=== PATIENT | female | born 1950 | race African-American/Black ===

== ENCOUNTER 2020-02-15 09:13 | Day surgery (SDC) | payer MEDICARE, OTHER ==
[2020-02-15] VITALS (9 sets, daily range): BP systolic 134–150; BP diastolic 60–90
[~2020-02-15] VITALS: Ht 152.4 cm; Wt 77.6 kg
[2020-02-15] MEDS ORDERED: PANTOPRAZOLE SO40 MG ORAL (10:23)
[2020-02-15] MEDS ORDERED: LINZESS290 MCG PO (10:23)
[2020-02-15] MEDS ORDERED: AMLODIPINE BESY10 MG ORAL (10:23)
[2020-02-15] MEDS ORDERED: ATORVASTATIN CA40 MG ORAL (10:23)
[2020-02-15] MEDS ORDERED: HYDROCHLOROTHIA25 MG ORAL (10:23)
[2020-02-15] MEDS ORDERED: GABAPENTIN100 MG ORAL (10:23)
[2020-02-15] MEDS ORDERED: LISINOPRIL2.5 MG ORAL (10:23)
--- NOTE | 2020-02-15 10:59 | Pre-Procedure Note/Attestation ---
Pre-Procedure Note/Attestation Complete Prior to Procedure Planned Procedure: not applicable Procedure Narrative: colonoscopy Indications for Procedure Pre-Operative Diagnosis: screening Attestation I attest that I discussed the nature of the procedure; its benefits; risks and complications; and alternatives (and the risks and benefits of such alternatives ), prior to the procedure, with the patient (or the patient's legal business office representative). I attest that, if there was a reasonable possibility of needing a blood transfusion, the patient (or the patient's legal business office representative) was given the [facility] standardized written summary, pursuant to the [place] Blood Safety Act ([place] Health and Safety Code # 1645, as amended). I attest that I re-evaluated the patient just prior to the surgery and that there has been no change in the patient's H&P, except as documented below: Ronna Castaneda MD Feb 15, 2020 10:59
--- NOTE | 2020-02-15 10:59 | Short Stay Surgery H&P ---
History of Present Illness History of Present Illness Chief Complaint see attached H&P HPI aGby Robles is a 69 year old female who was admitted on for Colon Screening Medication History Scheduled Amlodipine Besylate* (Amlodipine Besylate*), 10 MG ORAL DAILY, (Reported) Atorvastatin Calcium* (Atorvastatin Calcium*), 40 MG ORAL BEDTIME, (Reported) Gabapentin* (Gabapentin*), 300 MG ORAL THREE TIMES A DAY, (Reported) Hydrochlorothiazide* (Hydrochlorothiazide*), 25 MG ORAL DAILY, (Reported) Lisinopril* (Lisinopril*), Unknown Dose ORAL DAILY, (Reported) Pantoprazole* (Pantoprazole*), 40 MG ORAL DAILY, (Reported) Miscellaneous Medications Linaclotide (Linzess), 290 MCG PO, (Reported) Physical Exam Vital Signs Last Vital Signs Date Time Temp Pulse Resp B/P (MAP) Pulse Ox O2 Delivery O2 Flow Rate FiO2 02/15/20 10:10 Room Air 02/15/20 10:05 96.9 52 18 141/72 95 Plan Attestation Are the patient's medical conditions optimized for surgery? Ronna Castaneda MD Feb 15, 2020 10:59
[2020-02-15] MEDS ORDERED: LR 1000ml ONE (11:00)
[2020-02-15] MEDS ORDERED: Lidocaine 1% MPF 10mg/ml 5ml ONE (11:00)
--- NOTE | 2020-02-15 11:41 | Endoscopy Procedure Note ---
Endoscopy Procedure Note General Indication for Procedure: SCREEN Procedures Performed: colonoscopy Operative Findings/Diagnosis: RECTAL POLYP - SNARE Specimen: yes Pt Tolerated Procedure Well: Yes Estimated Blood Loss: none Anesthesia Anesthesiologist: CANDELARIO Anesthesia: MAC Medications Medication Given: see anesthesia record Inserted Devices Implant(s) used?: No GI Core Measures 50 yrs or older w/o bx or poly: Yes 10yrs. F/U recommended: No If not recommended, why?: Above average risk 18 years or older w/prev. colo: Yes <3yrs. since last colonoscopy: No Med reason:<3 yrs.: System Reason:<3 yrs.: Last colonoscopy >= to 3yrs: Yes Ronna Castaneda MD Feb 15, 2020 11:41
--- NOTE | 2020-02-15 11:42 | Brief Operative Note ---
Immediate Post Operative Note Operative Note Chief Complaint: screen Pre-op Diagnosis: screening Procedure: colon polyp Post-op Diagnosis: rectal polyp - snare Surgeon: breonna Anesthesiologist: CANDELARIO Anesthesia: MAC Specimen: yes Complications: none Condition: stable Fluids: per anesthesia Estimated Blood Loss: none Implant(s) used?: No Ronna Castaneda MD Feb 15, 2020 11:42
--- NOTE | 2020-02-15 11:47 | Immediate Post-Op Evaluation ---
Immediate Post-Op Evalulation Immediate Post-Op Evalulation Procedure: colonoscopy Date of Evaluation: Feb 15, 2020 Time of Evaluation: 11:45 IV Fluids: 800 Blood Pressure Systolic: 136 Blood Pressure Diastolic: 60 Pulse Rate: 69 Respiratory Rate: 14 O2 Sat by Pulse Oximetry: 99 Temperature (Fahrenheit): 98.2 Nausea: No Vomiting: No Complications none Patient Status: awake, reacts, patent Hydration Status: adequate Drug: none Tanisha Donato CRNA Feb 15, 2020 11:47
--- NOTE | 2020-02-15 11:49 | Anethesia Preoperative Eval ---
Anesthesia Pre-op PMH/ROS General Date of Evaluation: Feb 15, 2020 Time of Evaluation: 11:08 Anesthesiologist: dariana ASA Score: ASA 3 Mallampati Score Class I : Soft palate, uvula, fauces, pillars visible Class II: Soft palate, uvula, fauces visible Class III: Soft palate, base of uvula visible Class IV: Only hard plate visible Mallampati Classification: Class III Surgeon: corey Diagnosis: screening Surgical Procedure: colonoscopy Anesthesia History: none Family History: no anesthesia problems Allergies: Coded Allergies: No Known Allergies (Unverified , 02/15/20) Medications: see eMAR Patient NPO?: Yes NPO Date: Feb 15, 2020 NPO Time: 00:01 Past Medical History Cardiovascular: Reports: HTN Pulmonary: Denies: asthma, COPD, [place], other Gastrointestinal/Genitourinary: Reports: GERD; Denies: CRI, ESRD, other Endocrine: Denies: DM, hypothyroidism, steroids, other HEENT: Denies: cataract (L), cataract (R), glaucoma, [place] (L), [place] (R), other Hematology/Immune: Denies: anemia, DVT, bleeding disorder, other Musculoskeletal/Integumentary: Reports: OA; Denies: RA, DJD, DDD, edema, other Other: obesity PSxH Narrative: unknown Anesthesia Pre-op Phys. Exam Physician Exam Last Vital Signs Date Time Temp Pulse Resp B/P (MAP) Pulse Ox O2 Delivery O2 Flow Rate FiO2 02/15/20 10:10 Room Air 02/15/20 10:05 96.9 52 18 141/72 95 Constitutional: NAD Neurologic: CN 2-12 intact Cardiovascular: RRR Respiratory: CTA Gastrointestinal: S/NT/ND Airway Exam Mallampati Classification 3 Mallampati Score: Class III MO: limited Neck: thinck ROM: limited Dentures: no upper, no lower Anesthesia Pre-op A/P Studies Pre-op Studies: EKG - SR Risk Assessment & Plan Assessment: covid neg Plan: mac Status Change Before Surgery: No Pre-Antibiotics Drug: none Tanisha Donato CRNA Feb 15, 2020 11:49
--- NOTE | 2020-02-15 12:55 | 48 Hour Post Anesthesia Eval ---
Post Anesthesia Evaluation Procedure: colonoscopy Date of Evaluation: Feb 15, 2020 Time of Evaluation: 12:55 Blood Pressure Systolic: 139 0: 60 Pulse Rate: 70 Respiratory Rate: 14 O2 Sat by Pulse Oximetry: 98 Airway: patent Nausea: No Vomiting: No Hydration Status: adequate Cardiopulmonary Status: stable Mental Status/LOC: patient returned to baseline Post-Anesthesia Complications: none Follow-up care needed: N/A Tanisha Donato CRNA Feb 15, 2020 12:55
--- NOTE | 2020-02-15 14:00 | Procedure Note ---
DATE OF PROCEDURE: 02/15/2020 PROCEDURE: Colonoscopy with snare polypectomy. SURGEON: Ronna Castaneda MD. ANESTHESIA: Please see the separate anesthesiologist notes for details. PRE-ENDOSCOPIC DIAGNOSIS: Screening colonoscopy. POST-ENDOSCOPIC DIAGNOSES: 1. A 5 mm rectal polyp status post snare polypectomy. 2. Mild anal stenosis. DESCRIPTION OF PROCEDURE: The procedure its risks, indications, alternatives, and possible complications including but not limited to bleeding, infection, perforation, , and anesthesia complications were explained to the patient and informed consent was obtained. The patient was then sedated and a rectal exam was done, which showed some degree of anal stenosis. There were however no masses or growths in that area. The colonoscope was introduced into the rectum and advanced to cecum. The cecum was identified by the appearance of the ileocecal valve. The colonoscope was then gradually withdrawn and mucosa examined carefully. Examination of the colonic mucosa revealed 5 mm rectal polyp which was seen on retroflexed views and removed with cold snare polypectomy. The anal area was examined both retrograde in the rectum and also anterograde through exit views. There were no masses or growths were identified. The colonoscope was removed. The patient was sent to recovery in good condition. COMPLICATIONS: None. RECOMMENDATIONS: 1. Followup biopsy results. 2. Long-term bowel regimen. 3. Outpatient followup. Thank you for asking me to participate in the care of this patient. Ronna Castaneda M.D. DR: Shasha JOB#: [id number] CC: MD RONNA Wall M.D. ; FAX#: [phone] [facility]
== END 2020-02-15 12:50 | disposition home or self-care (01) ==
LOC: GAS 09:13
DX: Z12.11 Encounter for screening for malignant neoplasm of colon (principal); K62.4 Stenosis of anus and rectum; K62.1 Rectal polyp; Z79.899 Other long term (current) drug therapy; I10 Essential (primary) hypertension; K21.9 Gastro-esophageal reflux disease without esophagitis; E66.9 Obesity, unspecified; D12.7 Benign neoplasm of rectosigmoid junction
CPT/HCPCS: 45385; 94003; J2704; J7120; U0002; 94150